=== PATIENT | female | born 1945 | race Caucasian/White ===

== ENCOUNTER 2018-01-27 14:57 | Outpatient (CLI) | payer MEDICARE, OTHER | END 2018-01-27 14:58 | disposition home or self-care (01) | LOC: BICMAMMO 14:57 | PROVIDERS: ATTEND Obstetrics & Gynecology | DX: Z12.31 Encounter for screening mammogram for malignant neoplasm of breast (principal); R92.1 Mammographic calcification found on diagnostic imaging of breast; Z80.3 Family history of malignant neoplasm of breast | CPT/HCPCS: 77063; 77067 ==

== ENCOUNTER 2018-07-17 13:52 | Outpatient (CLI) | payer MEDICARE, OTHER | END 2018-07-17 13:53 | disposition home or self-care (01) | LOC: BICRAD 13:52 | PROVIDERS: ATTEND Obstetrics & Gynecology | DX: R07.81 Pleurodynia (principal) | CPT/HCPCS: 71046 ==

== ENCOUNTER 2018-12-04 01:48 | Observation (INO) | payer MEDICARE, OTHER ==
[2018-12-04 03:25] LABS: #Eosinphils 0.2 thou/uL (0.0-0.7); #Lymphocytes 1.3 thou/uL (1.20-3.40); #Monocytes 0.5 thou/uL (0.11-0.59); #Neutrophils 3.9 thou/uL (1.40-6.50); %Basophils 0.7 % (0.0-1.0); %Eosinophils 2.7 % (0.0-10.0); %Lymphocytes 21.6 % (21.0-51.0); %Monocytes 8.9 % (0.0-10.0); %Neutrophils 66.1 % (42.0-75.0); Hemoglobin 14.2 g/dL (12.0-16.0); Mean Corpuscular HGB CONC 32.9 g/dL (32.0-36.0); Mean Corpuscular Hemoglobin 30.7 pg (27.0-31.0); Mean Corpuscular Volume 93.2 fL (78.0-98.0); Mean Platelet Volume 8.2 fL (7.4-10.4); Platelet Count 192 thou/uL (130-400); RBC Distribution Width 11.5 % (11.5-14.5); Red Blood Cell (RBC) Count 4.63 mill/uL (4.20-5.40); White Blood Cell (WBC) Count 5.9 thou/uL (4.8-10.8)
[2018-12-04 03:36] LABS: ALT (SGPT) 17 U/L (8-55); AST (SGOT) 19 U/L (5-34); Albumin 4.2 g/dL (3.4-4.8); Alkaline Phosphatase 75 U/L (40-150); Anion Gap 13 mmol/L (10-20); BUN (Urea Nitrogen) 28 mg/dL (9.8-20.1); Bilirubin, Total 0.5 mg/dL (0.2-1.2); Calc. Creatinine Clearance 0 mL/min (70-130); Calcium 9.7 mg/dL (7.8-10.44); Carbon Dioxide 25 mmol/L (23-31); Chloride 108 mmol/L (98-107); Estimated GFR-MDRD 68; Globulin 2.9 g/dL (2.4-3.5); Glucose 110 mg/dL (83-110); Protein, Total 7.1 g/dL (6.0-8.3); Sodium 142 mmol/L (136-145)
[2018-12-04 05:15] LABS: Troponin I Less than 0.010 ng/mL (< 0.028)
[2018-12-04] MEDS ORDERED: Aspirin Chewable 81 MG TAB ONE (05:16)
[2018-12-04 05:43] LABS: Bilirubin Negative (Negative); Blood, Urine Negative (Negative); Clarity CLEAR (Clear); Glucose, Urine (Dipstick) Negative (Negative); Leukocyte Moderate (Negative); Nitrite Negative (Negative); Protein, Urine (Dipstick) Negative (Neg-Trace); Specific Gravity, Urine 1.012 (1.002-1.036)
[2018-12-04 05:46] LABS: Bacteria/HPF None Seen HPF (None Seen); Hyaline Casts/LPF 0-3 HYALINE CAST LPF (0-3 Hyaline); RBC/HPF 0-3 HPF (0-3); Squamous Epithelial 0-3 HPF (0-3)
[2018-12-04] MEDS ORDERED: hydrALAZINE 20 MG/ML VIAL SLOW IVP PRN (06:32)
[2018-12-04] MEDS ORDERED: Ondansetron PF 4 MG/2 ML Vial IVP PRN (06:32)
[2018-12-04] MEDS ORDERED: Acetaminophen 325 MG TAB PO PRN (06:32)
--- NOTE | 2018-12-04 06:32 | HP ---
CHIEF COMPLAINT: Left side numbness of her hand. PCP: Dr Ortega Mistry HISTORY OF PRESENT ILLNESS: The patient is a 73-year-old female with past medical history of hypertension, SVT, who presents to the emergency department for concern for new onset of left hand numbness. The patient reported that this numbness started around 10 to 10:30 p.m. last night. The patient took aspirin then. She said that she should come to the ER to check to see what is going on. The patient has been seen by her PCP and her Carpet Inspector Finished, who both noted that the patient's blood pressure has been high and they asked the patient to keep a log. The patient's blood pressure at home has been ranging from systolic blood pressure of 143 to 187 over 80 to 123. The patient denies any chest pain or shortness of breath. The patient denies any weakness, changes to her speech, or loss of consciousness at this point. The patient's daughter present at bedside. The patient does not have any other complaints at this point. PCP, Dr. Ortega Mistry. PAST MEDICAL HISTORY: 1. SVT. 2. Hypertension. CURRENT MEDICATIONS: 1. Simvastatin. 2. Aspirin. 3. Folic acid. 4. Vitamin D. PAST SURGICAL HISTORY: 1. Ablation. 2. Hysterectomy. 3. rotator cuffs surgeries. SOCIAL HISTORY: The patient denies any smoking, drinking alcohol, or using of illicit drugs. ALLERGIES: THE PATIENT HAS ALLERGIES TO CODEINE AND SULFA DRUGS. FAMILY HISTORY: Her mother had breast cancer and heart disease. REVIEW OF SYSTEMS: A 10-point review of systems negative other than mentioned in the HPI. PHYSICAL EXAMINATION: VITAL SIGNS: Blood pressure 189/89, pulse 83, respirations 18, temperature 98.1 Fahrenheit, O2 97% on room air. CONSTITUTIONAL: The patient is alert and oriented. HEENT: Head atraumatic. Ears and nose grossly normal. Oral, no exudate noted. NECK: No lymphadenopathy. CARDIOVASCULAR: Regular rate and rhythm. No murmur, rubs, or gallops. RESPIRATIONS: Clear bilaterally. No wheezes. ABDOMEN: Soft. Bowel sounds positive. Nontender. EXTREMITIES: No edema noted. NEUROLOGIC: Cranial nerves II through XII intact grossly. Strength 5/5 bilaterally in upper and lower extremities. Sensation fully intact in all extremities except for left hand. PSYCHIATRIC: The patient is cooperative. IMAGING: EKG negative for ST segment elevation. CT head without contrast negative for acute CVA. Chest x-ray negative for acute abnormality. LABORATORY DATA: CBC and BMP reviewed and no acute findings noted. ASSESSMENT AND PLAN: 1. Left upper extremity numbness. The patient's symptoms possibly concerning for transient ischemic attack. Imaging study negative so far. Given the dominant of the symptoms, the patient was not TPA candidate as determined by the ER. Neurology consulted for AM. Echo ordered. MRI of the brain ordered. PT/OT, Speech therapy evaluation ordered. The patient noted to have good function and that is why I did not keep the patient n.p.o., but if the patient is noted to have difficulty swallowing, then we will make the patient n.p.o. at this point. We will continue aspirin. We will add atorvastatin. The patient was taking simvastatin. Neurology consult placed for morning. At this point, we will allow permissive hypertension, hydralazine ordered for blood pressure greater than 220/120. 2. Hypertension. The patient does seem to have elevated blood pressure, but is not on medication at home. Hydralazine p.r.n. added for permissive hypertension at this point. 3. Supraventricular tachycardia. History of supraventricular tachycardia, status post ablation. EKG normal sinus rhythm. Continue telemetry. 4. Deep venous thrombosis prophylaxis addressed. 5. Medical power of [place] attorney, daughter presents at bedside. 6. Code status, the patient was to be a DNR. The patient reports that she has paperwork at home. Her daughter verified the patient's DNR status. ER nurse was given form to complete for DNR paperwork while the patient is admitted. The patient is being admitted for observation for suspected transient ischemic attack. Job ID: [id number] [facility]
[2018-12-04 06:47] VITALS: BMI 20.7
[2018-12-04 08:26] LABS: Troponin I Less than 0.010 ng/mL (< 0.028)
[2018-12-04] MEDS: Aspirin 81 mg Enteric Coated Tablet PO SCH (08:26)
[2018-12-04] MEDS: Folic Acid 1 MG TAB PO SCH (08:26)
--- NOTE | 2018-12-04 08:30 | CT ---
PRELIMINARY REPORT/[facility]/EMERGENTY AFTER-HOURS PROCEDURE Addendum created by Denny Constantino MD on 12/04/2018 2:13 AM Central Time ([place] & [place]) THIS REPORT CONTAINS FINDINGS THAT MAY BE CRITICAL TO PATIENT CARE. The findings were verbally commun icated via telephone conference with DIVYA PICKARD at 2:13 AM [employer] on 12/04/2018. The findings were ackn owledged and understood. Initial Report created on 12/04/2018 2:03 AM Central Time ([place] & [place]) CT Head Without Contrast EXAM DATE/TIME: 12/04/2018 1:56 AM CLINICAL HISTORY: 73 years old, female; left hand numbness / parasthesia, last seen normal around 2300. *level 1 stroke alert* , high blood pressure. TECHNIQUE: Axial computed tomography images of the head/brain without contrast. STROKE PROTOCOL was implemented. COMPARISON: No relevant prior studies available. FINDINGS: Brain: Diffuse cerebral atrophy. No mass effect or midline shift. No extra-axial fluid collection. Ventricles: Ventricular prominence in this patient with diffuse cerebral atrophy. Bones/joints: Unremarkable. No acute fracture. Sinuses: No significant disease of the paranasal sinuses. Mastoid air cells: No mastoiditis. Soft tissues: Unremarkable. Vasculature: Arterial calcification. IMPRESSION: 1. No acute intracranial findings. 2. ASPECT ([facility]ohanna Stroke Program Early CT Score) = 10. Thank you for allowing us to participate in the care of your patient. Dictated and Authenticated by: Denny Constantino MD 12/04/2018 2:03 AM Central Time ([place] & [place]) FINAL REPORT EMERGENCY AFTER HOURS CT OF THE BRAIN WITHOUT CONTRAST: Date: 12/04/18 FINDINGS/IMPRESSION: I agree with the findings and impression given in the preliminary report per [facility] physician. No evide nce of acute intracranial abnormality. POS: [facility]
--- NOTE | 2018-12-04 08:39 | RAD ---
SINGLE VIEW OF THE CHEST: COMPARISON: . HISTORY: Chest pain and shortness of breath. FINDINGS: Single view of the chest shows a normal sized cardiomediastinal silhouette. There is no evidence of c onsolidation, mass, or pleural effusion. The bones are unremarkable. IMPRESSION: No evidence of acute cardiopulmonary disease. POS: [facility]
--- NOTE | 2018-12-04 10:54 | MRI ---
MRI BRAIN NONCONTRAST: HISTORY: A 73-year-old female with TIA: left hand hypesthesia and paresthesia. FINDINGS: The ventricles are normal in size and configuration. There is no restricted diffusion, midline shift or any other mass effect, recent intraaxial hemorrhage, or extraaxial fluid collection. There are a mild scattered small T2-hyperintensities in the cerebral white matter consistent with mild chronic i schemic white matter changes due to mild microvascular atherosclerosis. IMPRESSION: 1. Mild chronic ischemic white matter changes. 2. Otherwise negative. jnr POS: [facility]
--- NOTE | 2018-12-04 12:39 | CON ---
DATE OF CONSULTATION: 12/04/2018 CHIEF COMPLAINT: Left arm and leg numbness. HISTORY OF PRESENT ILLNESS: The patient is a 73-year-old lady, medical history was provided by the patient and her daughter. The patient has had hypertension with readings of up to recently and her blood pressure kept going higher. Diastolics have been in the 100s range recently. The patient got home. She did not feel well. She got ready to go to bed. She could go to sleep and the blood pressure kept going higher and couple of times, she felt unstable. She developed sudden onset left arm and leg numbness. Even at this time, she reports her left hand is numb. She takes aspirin on a daily basis. PREVIOUS MEDICAL HISTORY: Positive for SVT (supraventricular tachycardia) and hypertension. CURRENT MEDICATIONS: At home, she takes, 1. Simvastatin. 2. Folic acid. 3. Aspirin 81 mg per day. 4. Vitamin D. PREVIOUS SURGICAL HISTORY: Cardiac ablation procedure on May 2017, hysterectomy, bilateral rotator cuff repairs, last repair was 10 years ago. ALLERGIES: SHE HAS ALLERGIES TO SULFA, WHICH CAUSES A RASH IN HER MOUTH. SHE HAS INTOLERANCE TO CODEINE, WHICH CAUSES NAUSEA. SOCIAL HISTORY: She does not smoke or drink or use illicit drugs. FAMILY HISTORY: Her first cousin at 65 following a CVA. She started having strokes at age 36. Father at 78 from lung cancer; he was an ex-smoker. Mother from heart disease. Mother had a coronary artery bypass graft at age 80 and she had heart problems and at age 92. Mother was a breast cancer survivor. Her uncle had CVA at 42. Aunt also had CVAs, and this is all on the maternal side of the family. REVIEW OF SYSTEMS: PULMONARY: Negative for shortness of breath. GASTROINTESTINAL: Negative for any stomach problems such as nausea, vomiting, or diarrhea. NEUROLOGICAL: Positive for numbness in the left arm and leg. OPHTHALMOLOGIC: Negative for any vision changes. ENT: No hearing problems or tinnitus or dizziness. HEMATOLOGIC: Negative for anemia or bleeding diatheses. CARDIAC: Negative for chest pain. Positive for SVT. DERMATOLOGIC: Negative for any rash. LABORATORY WORKUP: White count 5.9, hemoglobin 14.2, hematocrit 43.1, platelets 192. Chemistry; sodium 142, potassium 4, chloride 108, bicarb 25, BUN 28, creatinine 0.82, AST 19, ALT 17, calcium 9.7, magnesium 2.0, bilirubin 0.5. Urinalysis is positive for moderate leukocyte esterase. Her CT of the head was performed this morning and it does not show any acute intracranial findings. Her MRI of the brain was positive for mild chronic white matter changes, no acute stroke, otherwise negative MRI. PHYSICAL EXAMINATION: VITAL SIGNS: Temperature 98.8, blood pressure 155/79, pulse 80, respiratory rate 20, O2 sats 97%. GENERAL APPEARANCE: Very pleasant lady, who is comfortable in bed. CHEST: Clear vesicular breathing. CARDIOVASCULAR: S1, S2 heard. No murmurs. ABDOMEN: Soft. No organomegaly noted. NEUROLOGICAL EXAMINATION: Higher intellectual functions. The patient is oriented to time, place, and person. Appropriate conversation. Cranial nerves; 2 through 12. Normal extraocular movements. Pupils are reactive to light and accommodation and no facial asymmetry noted. Normal sensation of face bilaterally. Normal hearing to finger rub bilaterally. Tongue midline. No atrophy noted. She has normal elevation of palate bilaterally. Motor examination; bulk normal. Tone normal. Strength 5/5 in the iliopsoas, hamstrings, quadriceps, ankle dorsiflexion, plantar flexion, deltoid, biceps, triceps, wrist extension and flexion, and finger extension and flexion. Cerebellar; normal [id number], [id number]. Sensory examination; normal to touch in both upper and lower extremities. Deep tendon reflexes were 2+ throughout. IMPRESSION: The patient is a 73-year-old lady with history of history of sudden onset numbness in her upper and lower extremities and her examination was normal today and her MRI is negative for any acute stroke. At this time, due to her risk factors, which include SVT and hypertension, this is more likely secondary to hypertension rather than her SVT and she has small-vessel ischemic changes on her MRI. Clinical diagnosis is consistent with TIA. She will need further changes to her anti-platelet therapy. RECOMMENDATION: Please complete her TIA workup including echocardiogram and carotid ultrasound, and if the patient is stable, she can be discharged, but she needs to be on aspirin 325 mg per day and also follow up with her osteopathic medicine teacher for further help with hypertension. Thank you for requesting this consult. Job ID: [id number]
--- NOTE | 2018-12-04 13:42 | ULT ---
CAROTID DOPPLER: 12/04/2018 PROVIDED CLINICAL HISTORY: TIA. FINDINGS: Rey-scale and color Doppler sonography with spectral analysis was performed of the extracranial eason tid system bilaterally. There is no evidence for hemodynamically significant internal carotid artery stenosis by peak systolic velocity ratio criteria. Antegrade flow s seen in the vertebral arteries. IMPRESSION: No sonographic evidence for hemodynamically significant internal carotid artery stenosis. POS: [facility]
[2018-12-04] MEDS ORDERED: Atorvastatin Calcium 40 MG TAB PO SCH (21:00)
--- NOTE | 2018-12-04 22:21 | PDOC.EVN ---
Event Note - Event Note Event Note: Patient seen a couple of times today. Has had steady improvement with the numbness in the left hand. Discussed her situation with her manager care, Dr. Jane on the phone in the room. Comfortable that this is not cardiac in nature. Neuro saw the patient and feels she has had a TIA. Recommended ASA 325. She is on Simvastatin. She has tried other statins in the past and has not tolerated them. Carotid doppler negative. Awaiting the results of the echo.
[2018-12-05 06:52] LABS: #Eosinphils 0.1 thou/uL (0.0-0.7); #Monocytes 0.4 thou/uL (0.11-0.59); #Neutrophils 3.5 thou/uL (1.40-6.50); %Basophils 0.5 % (0.0-1.0); %Eosinophils 2.8 % (0.0-10.0); %Lymphocytes 20.3 % (21.0-51.0); %Monocytes 8.2 % (0.0-10.0); %Neutrophils 68.3 % (42.0-75.0); Hemoglobin 14.2 g/dL (12.0-16.0); Mean Corpuscular Hemoglobin 30.8 pg (27.0-31.0); Mean Corpuscular Volume 93.2 fL (78.0-98.0); Mean Platelet Volume 7.5 fL (7.4-10.4); Platelet Count 193 thou/uL (130-400); RBC Distribution Width 11.7 % (11.5-14.5); Red Blood Cell (RBC) Count 4.62 mill/uL (4.20-5.40); White Blood Cell (WBC) Count 5.2 thou/uL (4.8-10.8)
[2018-12-05 07:15] LABS: Anion Gap 11 mmol/L (10-20); BUN (Urea Nitrogen) 14 mg/dL (9.8-20.1); Calc. Creatinine Clearance 62 mL/min (70-130); Calcium 9.8 mg/dL (7.8-10.44); Carbon Dioxide 27 mmol/L (23-31); Cardiac Risk 2.7 (Less than 4.5); Chloride 106 mmol/L (98-107); Cholesterol 213 mg/dl (< 200 Desired); Estimated GFR-MDRD 71; Glucose 91 mg/dL (83-110); HDL Cholesterol 78 mg/dL (>60 Neg Risk); LDL Cholesterol, Calculated 124 mg/dL; Potassium 3.8 mmol/L (3.5-5.1); Sodium 140 mmol/L (136-145); Triglycerides 54 mg/dL (Less than 150)
[2018-12-05 08:18] VITALS: BP 138/67; TEMP 97.7
[2018-12-05] MEDS: Folic Acid 1 MG TAB PO SCH (08:30)
[2018-12-05] MEDS: Aspirin 81 mg Enteric Coated Tablet PO SCH (08:30)
[2018-12-05] MEDS ORDERED: Heparin 5,000 UNITS/ML VIAL SC SCH (09:00)
--- NOTE | 2018-12-07 13:42 | DIS ---
DATE OF ADMISSION: 12/04/2018 DATE OF DISCHARGE: 12/05/2018 DISCHARGE DIAGNOSES: 1. Transient ischemic attack with left upper extremity weakness. 2. Hypertension. 3. History of supraventricular tachycardia. 4. History of hyperlipidemia. HISTORY OF PRESENT ILLNESS: The patient is a 73-year-old female, who presented via the emergency department. The patient has been followed by Dr. Jane, Cardiology. The patient has recently had some concerns regarding her blood pressure and has been monitoring it more closely at home. On the day of admission, the patient was noted to have significant elevations in her blood pressure with the peak systolic at 187. Associated with this, she developed some numbness in her left hand and she then presented to the emergency department. HOSPITAL COURSE: The patient's blood pressure was managed. She had CT scan of the brain, which showed no acute infarct. She also had subsequent MRI of the brain, which showed mild chronic ischemic white matter changes but nothing acute. Carotid Dopplers were unremarkable for any evidence of occlusive disease. Her blood pressure improved and her symptoms slowly resolved in her left upper extremity. She was seen in consultation by Neurology and felt that this was TIA. I also discussed the case with her treating inspector and he felt this was more appropriately managed as hypertensive issue and did not sound cardiac in nature. Echocardiogram was performed, which showed EF of 60% to 65% and was suggestive of some diastolic dysfunction. Troponins remain negative. Telemetry remained unremarkable. Fasting lipid panel revealed total cholesterol of 213, LDL 128, HDL 78, triglycerides 54. Once the patient's symptoms were resolved, her blood pressure was adequately controlled. She was felt to be stable for discharge to home to have outpatient followup. PHYSICAL EXAMINATION: VITAL SIGNS: On the day of discharge, temperature 97.7, pulse 79, respirations 16, O2 saturation 97% on room air, BP 138/67. GENERAL APPEARANCE: Age-appropriate female, in no distress. She was awake, alert, very pleasant, and cooperative. HEART: Regular without murmurs. LUNGS: Clear bilaterally. ABDOMEN: Benign. EXTREMITIES: Warm and dry with normal strength. DISPOSITION: The patient is discharged to home. ACTIVITY: As tolerated. DIET: She has no dietary restrictions. DISCHARGE MEDICATIONS: She will be on: 1. Atorvastatin 40 mg at bedtime, although the patient has had some history of difficulty tolerating statins in the past. Therefore, she was encouraged to continue with her current statin of Zocor 20 mg p.o. at bedtime and hold onto the atorvastatin till she follows up with her treating inspector. I would prefer the atorvastatin if that is something she could tolerate, but she needs to clear that with her treating inspector. She was also given a prescription for Norvasc 5 mg daily. However, her blood pressure had essentially normalized and it was not necessitating treatment at that time. Therefore, she was encouraged to discuss this with her treating inspector as an outpatient as well. 2. She will be on aspirin 325 p.o. daily. 3. Folic acid one p.o. at bedtime. 4. Vitamin D3. FOLLOWUP: She will follow up with Dr. Ortega Mistry in 7 days and she will follow up with Dr. Jane in 2 to 3 weeks. She can return to the emergency department should she have any problems prior to that time. Job ID: [id number]
== END 2018-12-05 10:39 | disposition home or self-care (01) ==
LOC: ERS 01:48 → 2SE 04:19
PROVIDERS: ADMIT Family Medicine; ATTEND Family Medicine
DX: R20.0 Anesthesia of skin (principal); I10 Essential (primary) hypertension; I47.1 Supraventricular tachycardia; E78.5 Hyperlipidemia, unspecified; E78.00 Pure hypercholesterolemia, unspecified; Z79.82 Long term (current) use of aspirin; Z79.899 Other long term (current) drug therapy; Z88.2 Allergy status to sulfonamides; Z88.5 Allergy status to narcotic agent; Z66 Do not resuscitate
CPT/HCPCS: 70450; 70551; 71045; 80048; 80053; 80061; 82962; 83735; 84484 ×2; 85025 ×2; 93005; 93306; 93880; 97139 ×4; 99285; G0378 ×2; 36415; 36416; 81003; 81015; J1644

== ENCOUNTER 2019-02-09 15:00 | Outpatient (CLI) | payer MEDICARE, OTHER ==
--- NOTE | 2019-02-09 15:41 | MMO ---
Bilateral MAMMO Bilat Screen [facility]. CLINICAL HISTORY: Patient is 73 years old and is seen for screening. The patient has the following family history of breast cancer: mother, at age 55 and maternal aunt, GREAT. The patient has no personal history of cancer. The patient has a history of bilateral Breast reduction at age 62, Explantation - Had implants removed and bilateral Implants. VIEWS: The views performed were: bilateral craniocaudal with tomosynthesis and bilateral mediolateral oblique with tomosynthesis. FILMS COMPARED: The present examination has been compared to prior imaging studies performed at [facility] on 12/05/2009, 12/11/2010, 12/04/2011, 11/30/2012, 12/01/2013, 12/02/2014, 12/04/2015, 12/25/2016, 01/27/2018 and 02/09/2019, and at [facility] on 11/14/2006, 11/30/2007 and 12/01/2008. MAMMOGRAM FINDINGS: There are scattered fibroglandular densities. There are stable benign appearing calcifications seen in both breasts. There are no suspicious masses, suspicious calcifications, or new areas of architectural distortion. IMPRESSION: THERE IS NO MAMMOGRAPHIC EVIDENCE OF MALIGNANCY. A ROUTINE FOLLOW-UP MAMMOGRAM IN 1 YEAR IS RECOMMENDED. THE RESULTS OF THIS EXAM WERE SENT TO THE PATIENT. ACR BI-RADS Category 2 - Benign finding MAMMOGRAPHY NOTE: 1. A negative mammogram report should not delay a biopsy if a dominant of clinically suspicious mass is present. 2. Approximately 10% to 15% of breast cancers are not detected by mammography. 3. Adenosis and dense breasts may obscure an underlying neoplasm.
== END 2019-02-09 15:01 | disposition home or self-care (01) ==
LOC: BICMAMMO 15:00
PROVIDERS: ATTEND Obstetrics & Gynecology
DX: Z12.31 Encounter for screening mammogram for malignant neoplasm of breast (principal); Z80.3 Family history of malignant neoplasm of breast
CPT/HCPCS: 77063; 77067

== ENCOUNTER 2021-08-15 06:23 | Emergency (ER) | payer MEDICARE ==
[2021-08-15] MEDS ORDERED: Metoclopramide HCl 10 MG/2 ML VIAL ONE (07:01)
[2021-08-15] MEDS ORDERED: diphenhydrAMINE 50 MG/ML VIAL ONE (07:01)
[2021-08-15 07:04] LABS: #Eosinphils 0.1 thou/uL (0.0-0.7); #Lymphocytes 1.3 thou/uL (1.20-3.40); #Monocytes 0.7 thou/uL (0.11-0.59); #Neutrophils 5.3 thou/uL (1.40-6.50); %Basophils 0.5 % (0.0-1.0); %Eosinophils 0.8 % (0.0-10.0); %Lymphocytes 17.5 % (21.0-51.0); %Monocytes 9.2 % (0.0-10.0); Hemoglobin 13.5 g/dL (12.0-16.0); Mean Corpuscular HGB CONC 33.7 g/dL (32.0-36.0); Mean Corpuscular Hemoglobin 31.6 pg (27.0-31.0); Mean Corpuscular Volume 93.8 fL (78.0-98.0); Platelet Count 178 thou/uL (130-400); RBC Distribution Width 11.6 % (11.5-14.5); Red Blood Cell (RBC) Count 4.27 mill/uL (4.20-5.40); White Blood Cell (WBC) Count 7.3 thou/uL (4.8-10.8)
[2021-08-15 07:26] LABS: ALT (SGPT) 43 U/L (8-55); AST (SGOT) 32 U/L (5-34); Albumin 4.1 g/dL (3.4-4.8); Alkaline Phosphatase 73 U/L (40-110); Anion Gap 12 mmol/L (10-20); BUN (Urea Nitrogen) 18 mg/dL (9.8-20.1); Bilirubin, Total 0.5 mg/dL (0.2-1.2); Calc. Creatinine Clearance 0 mL/min (70-130); Calcium 9.9 mg/dL (7.8-10.44); Carbon Dioxide 26 mmol/L (23-31); Chloride 109 mmol/L (98-107); Globulin 2.5 g/dL (2.4-3.5); Glucose 107 mg/dL (83-110); Protein, Total 6.6 g/dL (5.8-8.1); Sodium 143 mmol/L (136-145)
== END 2021-08-15 09:24 | disposition home or self-care (01) ==
LOC: ERS 06:23
DX: I10 Essential (primary) hypertension (principal); E78.5 Hyperlipidemia, unspecified; E78.00 Pure hypercholesterolemia, unspecified; Z79.82 Long term (current) use of aspirin; Z79.899 Other long term (current) drug therapy
CPT/HCPCS: 71045; 80053; 83880; 84484; 85025; 93005; 96365; 96375; J1200; J2765

== ENCOUNTER 2021-08-22 13:51 | Outpatient (CLI) | payer MEDICARE | END 2021-08-22 13:52 | disposition home or self-care (01) | LOC: BICMAMMO 13:51 | PROVIDERS: ATTEND Student in an Organized Health Care Education/Training Program | DX: Z12.31 Encounter for screening mammogram for malignant neoplasm of breast (principal); Z80.3 Family history of malignant neoplasm of breast | CPT/HCPCS: 77063; 77067 ==

== ENCOUNTER 2022-06-27 11:51 | Inpatient (IN) | payer MEDICARE ==
[2022-06-27 13:49] LABS: #Lymphocytes 1.9 thou/uL (1.20-3.40); #Monocytes 0.4 thou/uL (0.11-0.59); #Neutrophils 2.2 thou/uL (1.40-6.50); %Basophils 0.6 % (0.0-1.0); %Eosinophils 0.7 % (0.0-10.0); %Lymphocytes 41.4 % (21.0-51.0); %Monocytes 9.1 % (0.0-10.0); %Neutrophils 48.3 % (42.0-75.0); Hemoglobin 13.9 g/dL (12.0-16.0); Mean Corpuscular HGB CONC 33.1 g/dL (32.0-36.0); Mean Corpuscular Hemoglobin 30.6 pg (27.0-31.0); Mean Corpuscular Volume 92.4 fL (78.0-98.0); Mean Platelet Volume 7.6 fL (7.4-10.4); Platelet Count 162 thou/uL (130-400); RBC Distribution Width 11.5 % (11.5-14.5); Red Blood Cell (RBC) Count 4.54 mill/uL (4.20-5.40); White Blood Cell (WBC) Count 4.6 thou/uL (4.8-10.8)
[2022-06-27 14:17] LABS: ALT (SGPT) 18 U/L (8-55); AST (SGOT) 20 U/L (5-34); Albumin 4.6 g/dL (3.4-4.8); Alkaline Phosphatase 89 U/L (40-110); Anion Gap 13 mmol/L (10-20); BUN (Urea Nitrogen) 14 mg/dL (9.8-20.1); Bilirubin, Total 0.7 mg/dL (0.2-1.2); Calc. Creatinine Clearance 0 mL/min (70-130); Calcium 10.2 mg/dL (7.8-10.44); Carbon Dioxide 30 mmol/L (23-31); Chloride 103 mmol/L (98-107); Estimated GFR 71; Glucose 100 mg/dL (83-110); Protein, Total 7.6 g/dL (5.8-8.1); Sodium 142 mmol/L (136-145)
[2022-06-27] MEDS: Rosuvastatin 20 MG TAB PO SCH (22:39)
[2022-06-28 01:27] VITALS: BMI 23.6
[2022-06-28 06:27] LABS: Cardiac Risk 2.5 (Less than 4.5)
[2022-06-28] MEDS ORDERED: Carvedilol 6.25 MG TAB PO SCH (08:00)
[2022-06-28] MEDS ORDERED: Losartan 25 MG TAB PO SCH (09:00)
[2022-06-28] MEDS ORDERED: Enoxaparin Sodium 30 MG/0.3 ML SYRINGE SC SCH (09:00)
[2022-06-28] MEDS ORDERED: Aspirin 300 MG Suppository PR SCH (09:00)
[2022-06-28] MEDS ORDERED: Polyethylene Glycol 3350 17 GM Packet PO SCH (09:45)
[2022-06-28] MEDS: Aspirin 81 mg Enteric Coated Tablet PO SCH (11:18)
[2022-06-28] MEDS: Rosuvastatin 20 MG TAB PO SCH (21:09)
[2022-06-28] MEDS: Carvedilol 6.25 MG TAB PO SCH (21:09)
[2022-06-29 06:04] LABS: Anion Gap 14 mmol/L (10-20); BUN (Urea Nitrogen) 19 mg/dL (9.8-20.1); Calc. Creatinine Clearance 66 mL/min (70-130); Calcium 9.5 mg/dL (7.8-10.44); Carbon Dioxide 24 mmol/L (23-31); Chloride 108 mmol/L (98-107); Estimated GFR 76; Glucose 118 mg/dL (83-110); Potassium 4.3 mmol/L (3.5-5.1); Sodium 142 mmol/L (136-145)
[2022-06-29] MEDS: Carvedilol 6.25 MG TAB PO SCH ×2 (09:42→21:10)
[2022-06-29] MEDS: Aspirin 81 mg Enteric Coated Tablet PO SCH (09:43)
[2022-06-29] MEDS: Enoxaparin Sodium 40 MG/0.4 ML SYRINGE SC SCH (09:43)
[2022-06-29] MEDS: Polyethylene Glycol 3350 17 GM Packet PO SCH (09:43)
[2022-06-29 11:34] LABS: #Eosinphils 0.1 thou/uL (0.0-0.7); #Monocytes 0.6 thou/uL (0.11-0.59); #Neutrophils 2.8 thou/uL (1.40-6.50); %Basophils 0.4 % (0.0-1.0); %Lymphocytes 36.3 % (21.0-51.0); %Neutrophils 50.3 % (42.0-75.0); Hemoglobin 12.8 g/dL (12.0-16.0); Mean Corpuscular HGB CONC 33.2 g/dL (32.0-36.0); Mean Corpuscular Hemoglobin 30.6 pg (27.0-31.0); Mean Corpuscular Volume 92.2 fL (78.0-98.0); Mean Platelet Volume 7.6 fL (7.4-10.4); Platelet Count 157 thou/uL (130-400); RBC Distribution Width 11.7 % (11.5-14.5); Red Blood Cell (RBC) Count 4.17 mill/uL (4.20-5.40); White Blood Cell (WBC) Count 5.6 thou/uL (4.8-10.8)
[2022-06-29 11:48] LABS: ALT (SGPT) 14 U/L (8-55); AST (SGOT) 16 U/L (5-34); Albumin 3.8 g/dL (3.4-4.8); Alkaline Phosphatase 78 U/L (40-110); Anion Gap 14 mmol/L (10-20); BUN (Urea Nitrogen) 18 mg/dL (9.8-20.1); Bilirubin, Total 0.6 mg/dL (0.2-1.2); CRP (Inflammatory) Less than 0.50 mg/dL (= or < 0.5); Calc. Creatinine Clearance 71 mL/min (70-130); Calcium 9.3 mg/dL (7.8-10.44); Carbon Dioxide 26 mmol/L (23-31); Estimated GFR 84; Globulin 2.6 g/dL (2.4-3.5); Glucose 72 mg/dL (83-110); Protein, Total 6.4 g/dL (5.8-8.1)
[2022-06-29 11:57] LABS: Chloride 107 mmol/L (98-107); Potassium 4.1 mmol/L (3.5-5.1); Sodium 143 mmol/L (136-145)
[2022-06-29 12:11] LABS: Free T4 (Free Thyroxine) 1.08 ng/dL (0.70-1.48)
[2022-06-29] MEDS: Rosuvastatin 20 MG TAB PO SCH (21:11)
[2022-06-30 07:49] VITALS: TEMP 98
[2022-06-30] MEDS: Polyethylene Glycol 3350 17 GM Packet PO SCH (09:15)
[2022-06-30] MEDS: Carvedilol 6.25 MG TAB PO SCH (09:16)
[2022-06-30] MEDS: Enoxaparin Sodium 40 MG/0.4 ML SYRINGE SC SCH (09:17)
[2022-06-30] MEDS: Aspirin 81 mg Enteric Coated Tablet PO SCH (09:17)
[2022-06-30 09:38] LABS: Bilirubin Negative (Negative); Blood, Urine Negative (Negative); Clarity Clear (Clear); Glucose, Urine (Dipstick) Normal (Negative); Ketone, Urine Negative (Negative); Leukocyte 250 Leu/uL (Negative); Nitrite Negative (Negative); Protein, Urine (Dipstick) Negative (Neg-Trace); RBC/HPF 0-3 HPF (0-3); Squamous Epithelial 0-3 HPF (0-3); Urobilinogen Normal mg/dL (Less than 2); WBC/HPF 0-3 HPF (0-3); pH, Urine 6.5 (5.0-9.0)
[2022-06-30 09:40] LABS: Bacteria/HPF 1+ HPF (None Seen)
[2022-06-30 09:42] LABS: Urine Culture Reflex Yes Yes
[2022-06-30 11:37] VITALS: BP 115/63
== END 2022-06-30 13:37 | disposition home or self-care (01) | DRG 69 ==
LOC: ERS 11:51 → ERHOLD 16:02 → NEURO 20:46 → OBSVTOIN 06-28 19:10
PROVIDERS: ADMIT Internal Medicine; ATTEND Internal Medicine
DX: G45.9 Transient cerebral ischemic attack, unspecified (principal); I10 Essential (primary) hypertension; E78.00 Pure hypercholesterolemia, unspecified; E55.9 Vitamin D deficiency, unspecified; K59.00 Constipation, unspecified; Z88.5 Allergy status to narcotic agent; Z88.2 Allergy status to sulfonamides; Z79.899 Other long term (current) drug therapy; Z79.82 Long term (current) use of aspirin; Z98.890 Other specified postprocedural states; Z86.79 Personal history of other diseases of the circulatory system
CPT/HCPCS: 36415; 70450; 70551; 71045; 72141; 80048; 80053; 80061; 81001; 84439; 84443; 84481; 84484; 85025; 85652; 86140; 87086; 93005; 95712; 95819; 95957; 96372; G0378; J1650; U0003; U0005

== ENCOUNTER 2022-07-06 23:07 | Emergency (ER) | payer MEDICARE ==
[2022-07-06 23:36] LABS: #Eosinphils 0.1 thou/uL (0.0-0.7); #Lymphocytes 1.8 thou/uL (1.20-3.40); #Monocytes 0.5 thou/uL (0.11-0.59); #Neutrophils 2.5 thou/uL (1.40-6.50); %Basophils 0.3 % (0.0-1.0); %Eosinophils 2.1 % (0.0-10.0); %Lymphocytes 37.3 % (21.0-51.0); %Monocytes 9.7 % (0.0-10.0); %Neutrophils 50.6 % (42.0-75.0); Hemoglobin 13.3 g/dL (12.0-16.0); Mean Corpuscular HGB CONC 34.2 g/dL (32.0-36.0); Mean Corpuscular Hemoglobin 31.3 pg (27.0-31.0); Mean Corpuscular Volume 91.3 fL (78.0-98.0); Mean Platelet Volume 7.7 fL (7.4-10.4); Platelet Count 161 thou/uL (130-400); RBC Distribution Width 11.4 % (11.5-14.5); Red Blood Cell (RBC) Count 4.26 mill/uL (4.20-5.40); White Blood Cell (WBC) Count 4.9 thou/uL (4.8-10.8)
[2022-07-06 23:39] LABS: Bilirubin Negative (Negative); Blood, Urine Negative (Negative); Clarity Clear (Clear); Glucose, Urine (Dipstick) Normal (Negative); Ketone, Urine Negative (Negative); Leukocyte 500 Leu/uL (Negative); Nitrite Negative (Negative); Protein, Urine (Dipstick) Negative (Neg-Trace); RBC/HPF 0-3 HPF (0-3); Specific Gravity, Urine 1.003 (1.002-1.036); Squamous Epithelial None Seen HPF (0-3); Urobilinogen Normal mg/dL (Less than 2); pH, Urine 6.5 (5.0-9.0)
[2022-07-06 23:40] LABS: Bacteria/HPF Rare-Few HPF (None Seen)
[2022-07-06 23:52] LABS: ALT (SGPT) 24 U/L (8-55); AST (SGOT) 19 U/L (5-34); Albumin 4.3 g/dL (3.4-4.8); Alkaline Phosphatase 87 U/L (40-110); Anion Gap 11 mmol/L (10-20); BUN (Urea Nitrogen) 14 mg/dL (9.8-20.1); Bilirubin, Total 0.7 mg/dL (0.2-1.2); Calc. Creatinine Clearance 0 mL/min (70-130); Calcium 9.8 mg/dL (7.8-10.44); Carbon Dioxide 27 mmol/L (23-31); Chloride 108 mmol/L (98-107); Estimated GFR 71; Globulin 2.5 g/dL (2.4-3.5); Glucose 105 mg/dL (83-110); Potassium 3.7 mmol/L (3.5-5.1); Protein, Total 6.8 g/dL (5.8-8.1); Sodium 142 mmol/L (136-145)
[2022-07-07] MEDS ORDERED: Ciprofloxacin 500 MG TAB ONE (01:56)
[2022-07-07 03:27] LABS: SARS-CoV-2 NAA Rapid Test Not Detected (NotDetected)
== END 2022-07-07 01:56 | disposition home or self-care (01) ==
LOC: ERS 23:07
DX: R53.1 Weakness (principal); N39.0 Urinary tract infection, site not specified; E78.5 Hyperlipidemia, unspecified; E78.00 Pure hypercholesterolemia, unspecified; I10 Essential (primary) hypertension; Z20.822 Contact with and (suspected) exposure to COVID-19
CPT/HCPCS: 80053; 84484; 85025; 87086; 93005; 99285; U0002; 36415; 81003; 81015

== ENCOUNTER 2022-07-25 13:35 | Outpatient (CLI) | payer MEDICARE | END 2022-07-25 13:36 | disposition home or self-care (01) | LOC: BICULT 13:35 | PROVIDERS: ATTEND Family Medicine | DX: R41.82 Altered mental status, unspecified (principal) | CPT/HCPCS: 93880 ==

== ENCOUNTER 2022-08-30 14:37 | Outpatient (CLI) | payer MEDICARE | END 2022-08-30 14:38 | disposition home or self-care (01) | LOC: BICMAMMO 14:37 | PROVIDERS: ATTEND Family Medicine | DX: Z12.31 Encounter for screening mammogram for malignant neoplasm of breast (principal); Z13.820 Encounter for screening for osteoporosis; M85.89 Other specified disorders of bone density and structure, multiple sites; Z80.3 Family history of malignant neoplasm of breast; Z98.890 Other specified postprocedural states; Z98.82 Breast implant status; Z78.0 Asymptomatic menopausal state | CPT/HCPCS: 77063; 77067; 77080 ==

== ENCOUNTER 2023-09-03 07:50 | Outpatient (CLI) | payer MEDICARE | END 2023-09-03 07:51 | disposition home or self-care (01) | LOC: BICRAD 07:50 | PROVIDERS: ATTEND Specialist | DX: M48.062 Spinal stenosis, lumbar region with neurogenic claudication (principal); M48.56XA Collapsed vertebra, not elsewhere classified, lumbar region, initial encounter for fracture; M43.8X6 Other specified deforming dorsopathies, lumbar region | CPT/HCPCS: 72120 ==

== ENCOUNTER 2023-12-16 08:46 | Outpatient (CLI) | payer MEDICARE | END 2023-12-16 08:47 | disposition home or self-care (01) | LOC: SCSMRI 08:46 | PROVIDERS: ATTEND Specialist | DX: M80.08XA Age-related osteoporosis with current pathological fracture, vertebra(e), initial encounter for fracture (principal); M87.9 Osteonecrosis, unspecified; M70.62 Trochanteric bursitis, left hip; M70.61 Trochanteric bursitis, right hip; K57.30 Diverticulosis of large intestine without perforation or abscess without bleeding | CPT/HCPCS: 72195 ==

== ENCOUNTER 2024-11-05 13:25 | Outpatient (CLI) | payer MEDICARE ==
[2024-11-05 15:21] LABS: #Basophils 0.03 10x3/uL (0.0-0.2); %Basophils 0.5 % (0.0-1.0); %Lymphocytes 34.9 % (21.0-51.0); %Monocytes 11.3 % (0.0-10.0); %Neutrophils 51.1 % (42.0-75.0); Hematocrit 40.3 % (36.0-47.0); Hemoglobin 13.2 g/dL (12.0-16.0); Mean Corpuscular HGB CONC 32.8 g/dL (32.0-36.0); Mean Corpuscular Hemoglobin 29.9 pg (27.0-31.0); Mean Corpuscular Volume 91.4 fL (78.0-98.0); Mean Platelet Volume 10.9 fL (7.4-10.4); Platelet Count 196 10x3/uL (130-400); RBC Distribution Width 13.2 % (11.5-14.5); Red Blood Cell (RBC) Count 4.41 mill/uL (4.20-5.40)
[2024-11-05 15:35] LABS: INR-International Normal Ratio 1.7; Prothrombin Time 20.4 sec (12.0-14.7)
[2024-11-05 15:38] LABS: Anion Gap 10 mmol/L (10-20); BUN (Urea Nitrogen) 21 mg/dL (9.8-20.1); Calc. Creatinine Clearance 0 mL/min (70-130); Calcium 9.9 mg/dL (7.8-10.44); Carbon Dioxide 29 mmol/L (23-31); Chloride 108 mmol/L (98-107); Estimated GFR 72; Glucose 83 mg/dL (83-110); Potassium 3.9 mmol/L (3.5-5.1); Sodium 143 mmol/L (136-145)
[2024-11-05 15:55] LABS: PTT Greater than 250.0 sec (22.9-36.1)
== END 2024-11-05 13:26 | disposition home or self-care (01) ==
LOC: LABBT 13:25
PROVIDERS: ATTEND Surgery
DX: Z01.818 Encounter for other preprocedural examination (principal); M54.16 Radiculopathy, lumbar region; M48.061 Spinal stenosis, lumbar region without neurogenic claudication
CPT/HCPCS: 80048; 85025; 85610; 85730; 93005; 93010

== ENCOUNTER 2024-11-08 10:35 | Outpatient (CLI) | payer MEDICARE ==
[2024-11-08 11:22] LABS: PTT 29.9 sec (22.9-36.1); Prothrombin Time 13.2 sec (12.0-14.7)
== END 2024-11-08 10:36 | disposition home or self-care (01) ==
LOC: LABBT 10:35
PROVIDERS: ATTEND Surgery
DX: Z01.812 Encounter for preprocedural laboratory examination (principal); M48.061 Spinal stenosis, lumbar region without neurogenic claudication; M54.16 Radiculopathy, lumbar region
CPT/HCPCS: 85610; 85730

== ENCOUNTER 2024-11-09 05:51 | Inpatient (IN) | payer MEDICARE ==
[2024-11-05 13:55] VITALS: BMI 22.7
[2024-11-09] MEDS ORDERED: CEFAZOLIN 2 GM in Sodium Chloride 0.9% 100 ML IVPB SCH (06:15)
[2024-11-09] MEDS ORDERED: Vancomycin 1 GM VIAL ONE (06:27)
[2024-11-09] MEDS ORDERED: Thrombin 5000 UNITS/5 ML VIAL ONE (06:28)
[2024-11-09] MEDS ORDERED: Midazolam HCl 2 mg/2 ml Vial ONE (07:05)
[2024-11-09] MEDS ORDERED: fentaNYL 50 mcg/mL 1 mL Vial ONE ×3 (07:05→11:59)
[2024-11-09] MEDS ORDERED: Scopolamine 1 mg/72 hour Patch ONE (07:07)
[2024-11-09] MEDS ORDERED: Ondansetron PF 4 MG/2 ML Vial ONE (07:11)
[2024-11-09] MEDS ORDERED: Glycopyrrolate 0.2 MG/ML 5 ML SYRINGE ONE (07:11)
[2024-11-09] MEDS ORDERED: HYDROmorphone 2 MG/ML VIAL ONE (07:11)
[2024-11-09] MEDS ORDERED: Rocuronium Bromide 10 MG/ML (10ML VIAL) ONE ×2 (07:11→09:14)
[2024-11-09] MEDS ORDERED: PROPOFOL 20 ML ONE (07:11)
[2024-11-09] MEDS ORDERED: Lidocaine 1% PF 5 ML VIAL ONE (07:11)
[2024-11-09] MEDS ORDERED: Dexamethasone 20 MG/5 ML VIAL ONE (07:11)
[2024-11-09] MEDS ORDERED: PHENYLEPHRINE-NS 100 MCG/ML 10 ML SYRINGE ONE ×2 (07:11→09:29)
[2024-11-09] MEDS ORDERED: Lidocaine 2% 6 ML (Jelly) SYR ONE (07:14)
[2024-11-09] MEDS ORDERED: fentaNYL 50 mcg/mL 1 mL Vial SLOW IVP SCH (07:15)
[2024-11-09] MEDS ORDERED: Sodium Chloride 0.9% 100 ML ONE (07:17)
[2024-11-09] MEDS ORDERED: CEFAZOLIN 2 GM VIAL ONE (07:21)
[2024-11-09] MEDS ORDERED: ePHEDrine Sulfate 50 MG/10 ML VIAL ONE (09:52)
[2024-11-09] MEDS ORDERED: SUGAMMADEX SODIUM 200 MG/2 ML VIAL ONE ×2 (10:50→11:29)
[2024-11-09] MEDS ORDERED: Morphine 2 MG/ML VIAL SLOW IVP PRN (11:40)
[2024-11-09] MEDS ORDERED: Acetaminophen 325 MG TAB PO PRN (11:40)
[2024-11-09] MEDS ORDERED: diphenhydrAMINE 25 MG CAP PO PRN (11:40)
[2024-11-09] MEDS ORDERED: Milk Of Magnesia 30 ML UDCUP PO PRN (11:40)
[2024-11-09] MEDS ORDERED: HYDROcodone/Acetaminophen 10/325 mg Tablet PO PRN (11:44)
[2024-11-09] MEDS ORDERED: HYDROcodone/Acetaminophen 5/325 mg Tablet PO PRN (11:44)
[2024-11-09] MEDS ORDERED: hydrALAZINE 20 MG/ML VIAL SLOW IVP PRN (11:45)
[2024-11-09] MEDS ORDERED: Polyethylene Glycol 3350 17 GM Packet PO PRN (11:45)
[2024-11-09] MEDS: Scopolamine 1 mg/72 hour Patch TOP SCH (16:46)
[2024-11-09] MEDS: Sodium Chloride 0.9% 1,000 ML IV SCH (16:47)
[2024-11-09] MEDS: CEFAZOLIN 2 GM in Sodium Chloride 0.9% 100 ML IVPB SCH (16:48)
[2024-11-09] MEDS: Ondansetron PF 4 MG/2 ML Vial IVP PRN (16:49)
[2024-11-09] MEDS: Carvedilol 6.25 MG TAB PO SCH (20:57)
[2024-11-09] MEDS: Folic Acid 1 MG TAB PO SCH (20:57)
[2024-11-09] MEDS: Cholecalciferol 1,000 UNITS (25 MCG) TAB PO SCH (20:58)
[2024-11-09] MEDS: Trospium 20 MG TAB PO SCH (20:58)
[2024-11-09] MEDS: Rosuvastatin 20 MG TAB PO SCH (20:58)
[2024-11-10 05:33] LABS: #Basophils Less than 0.03 10x3/uL (0.0-0.2); #Eosinophils Less than 0.03 10x3/uL (0.0-0.7); %Basophils 0.2 % (0.0-1.0); %Lymphocytes 9.8 % (21.0-51.0); %Monocytes 7.4 % (0.0-10.0); %Neutrophils 82.1 % (42.0-75.0); Hematocrit 32.6 % (36.0-47.0); Hemoglobin 10.6 g/dL (12.0-16.0); Mean Corpuscular HGB CONC 32.5 g/dL (32.0-36.0); Mean Corpuscular Hemoglobin 29.9 pg (27.0-31.0); Mean Corpuscular Volume 92.1 fL (78.0-98.0); Mean Platelet Volume 10.4 fL (7.4-10.4); Platelet Count 157 10x3/uL (130-400); RBC Distribution Width 12.8 % (11.5-14.5); Red Blood Cell (RBC) Count 3.54 mill/uL (4.20-5.40)
[2024-11-10 06:23] LABS: Anion Gap 14 mmol/L (10-20); BUN (Urea Nitrogen) 19 mg/dL (9.8-20.1); Calc. Creatinine Clearance 62 mL/min (70-130); Carbon Dioxide 21 mmol/L (23-31); Chloride 108 mmol/L (98-107); Estimated GFR 75; Glucose 113 mg/dL (83-110); Potassium 4.2 mmol/L (3.5-5.1); Sodium 139 mmol/L (136-145)
[2024-11-10] MEDS: traMADol HCl 50 MG TAB PO PRN (08:58)
[2024-11-10] MEDS: tiZANidine HCl 4 MG TAB PO PRN (15:17)
[2024-11-11 21:25] VITALS: TEMP 98.2
[2024-11-11 22:54] VITALS: BP 136/67
== END 2024-11-11 21:26 | DRG 517 ==
LOC: SDC 05:51 → SURG A 11:48 → SDC 11-10 08:06 → SURG A 11-10 08:06
PROVIDERS: ADMIT Surgery; ATTEND Surgery
PROC: 01NB0ZZ Release Lumbar Nerve, Open Approach (ICD-10-PCS; principal; 2024-11-09)
DX: M48.062 Spinal stenosis, lumbar region with neurogenic claudication (principal); M54.16 Radiculopathy, lumbar region; E78.00 Pure hypercholesterolemia, unspecified; I25.5 Ischemic cardiomyopathy; I10 Essential (primary) hypertension; Z79.02 Long term (current) use of antithrombotics/antiplatelets; Z79.82 Long term (current) use of aspirin; Z88.2 Allergy status to sulfonamides; Z90.710 Acquired absence of both cervix and uterus; G47.33 Obstructive sleep apnea (adult) (pediatric); G89.4 Chronic pain syndrome; M19.90 Unspecified osteoarthritis, unspecified site; Z86.73 Personal history of transient ischemic attack (TIA), and cerebral infarction without residual deficits; Z79.899 Other long term (current) drug therapy; Z88.5 Allergy status to narcotic agent
CPT/HCPCS: 36415; 80048; 85025; 85610; 85730; J1100; J1171; J2250; J2405; J2704; J3010; J3370; J7030

== ENCOUNTER 2025-08-19 11:43 | Emergency (ER) | payer MEDICARE ==
[2025-08-19 12:20] LABS: #Basophils Less than 0.03 10x3/uL (0.0-0.2); #Eosinophils 0.03 10x3/uL (0.0-0.7); #Monocytes 0.27 10x3/uL (0.11-0.59); #Neutrophils 4.15 10x3/uL (1.40-6.50); %Basophils 0.4 % (0.0-1.0); %Eosinophils 0.5 % (0.0-10.0); %Lymphocytes 20.2 % (21.0-51.0); %Monocytes 4.8 % (0.0-10.0); %Neutrophils 74.1 % (42.0-75.0); Hematocrit 33.4 % (36.0-47.0); Hemoglobin 10.8 g/dL (12.0-16.0); Mean Corpuscular Hemoglobin 29.3 pg (27.0-31.0); Mean Corpuscular Volume 90.5 fL (78.0-98.0); Platelet Count 151 10x3/uL (130-400); Red Blood Cell (RBC) Count 3.69 mill/uL (4.20-5.40); White Blood Cell (WBC) Count 5.60 10x3/uL (4.8-10.8)
[2025-08-19 12:45] LABS: ALT (SGPT) 17 U/L (Less than 34); AST (SGOT) 27 U/L (11-34); Albumin 3.9 g/dL (3.1-4.5); Alkaline Phosphatase 73 U/L (40-110); Anion Gap 14 mmol/L (10-20); BUN (Urea Nitrogen) 16 mg/dL (9.8-20.1); Bilirubin, Total 0.7 mg/dL (0.3-1.2); Calc. Creatinine Clearance 0 mL/min (70-130); Calcium 9.7 mg/dL (7.8-10.44); Carbon Dioxide 26 mmol/L (23-31); Chloride 107 mmol/L (98-107); Globulin 2.7 g/dL (2.4-3.5); Glucose 155 mg/dL (83-110); Potassium 3.9 mmol/L (3.5-5.1); Sodium 143 mmol/L (136-145)
[2025-08-19 14:28] LABS: CAUTI Indications for Culture Alt mental st,lethar; Glucose, Urine (Dipstick) Normal (Negative); Leukocyte 250 Leu/uL (Negative); Protein, Urine (Dipstick) Negative (Neg-Trace); RBC/HPF 0-3 HPF (0-3); Specific Gravity, Urine 1.010 (1.002-1.036)
[2025-08-19 14:29] LABS: Bacteria/HPF 1+ HPF (None Seen)
[2025-08-19 14:31] LABS: Urine Culture Reflex No No
== END 2025-08-19 16:07 | disposition home or self-care (01) ==
LOC: ERS 11:43
DX: R55 Syncope and collapse (principal); N39.0 Urinary tract infection, site not specified; I10 Essential (primary) hypertension; E78.5 Hyperlipidemia, unspecified; I47.10 Supraventricular tachycardia, unspecified; Z86.73 Personal history of transient ischemic attack (TIA), and cerebral infarction without residual deficits; Z79.899 Other long term (current) drug therapy; Z79.82 Long term (current) use of aspirin
CPT/HCPCS: 71045; 80053; 81001; 84484; 85025; 93005; 94760; 96360; 96361